=== PATIENT | male | born 1960 | race African-American/Black ===

== ENCOUNTER 2017-04-26 21:44 | Emergency (ER) | payer SELFPAY ==
[2017-04-26 21:55] VITALS: TEMP 97.7; BMI 31.9
--- NOTE | 2017-04-26 21:56 | PDOC ---
Rapid Medical Evaluation Time Seen by Provider: 04/26/17 21:47 Medical Evaluation: 04/26/17 21:51 I have performed a brief in-person person evaluation of the patient. The patient presents with a chief complaint of numbness to right side of his face since yesterday, states symptoms started as foreign body sensation in right eye now with right side of face feeling numb. Also reports a little tension in his head Pertinent physical exam findings: NAD unilateral smile, drooping of right side of face unlabored breathing heart sis2 neuro: drooping to right side of face, unable to keep right eye closed I have ordered the following: ekg, labs saline lock The patient will proceed to the ED for further evaluation.
--- NOTE | 2017-04-26 22:33 | PDOC ---
History of Present Illness - General Chief Complaint: CVA/TIA Stated Complaint: RT SIDE NUMBESS Time Seen by Provider: 04/26/17 21:47 History Source: Patient - History of Present Illness Initial Comments: 04/26/17 23:11 26-year-old male with history of right lip numbness and right sided facial droop for greater than 24 hours with worsening facial droop. Patient unable to close right eye tearing. Patient reports slight headache. Patient reports that he has been waking up with headaches for the past several months. Patient has not seen his primary doctor for 2-3 years. Patient is not on any daily meds and denies past medical history. 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 Past History - Past Medical History Allergies/Adverse Reactions: Allergies Allergy/AdvReac Type Severity Reaction Status Date / Time No Known Allergies Allergy Verified 04/26/17 21:51 Home Medications: Ambulatory Orders Acyclovir [Zovirax -] 400 mg PO 5XD #50 tablet 04/27/17 Amlodipine Besylate [Norvasc -] 5 mg PO DAILY #30 tablet 04/27/17 Dextran 70/Hypromellose [Artificial Tears Eye Drops] 1 ml OP Q4HWA #1 bottle 08/09 predniSONE [Deltasone -] 60 mg PO DAILY #15 tablet 04/27/17 COPD: No Other medical history: Pt denies - Suicide/Smoking/Psychosocial Hx Smoking History: Never smoked Have you smoked in the past 12 months: No Number of Cigarettes Smoked Daily: 3 Information on smoking cessation initiated: No Hx Alcohol Use: No Drug/Substance Use Hx: No Substance Use Type: None Review of Systems - Review of Systems Able to Perform ROS?: Yes Is the patient limited Cam[place]onian proficient: No Constitutional: No: Symptoms Reported, See HPI, Chills, Diaphoresis, Fever, Loss of Appetite, Malaise, Night Sweats, Weakness, Weight Stable, Unintentional Wgt. Loss, Unexplained wgt Loss, Other Neurological: Yes: Numbness (right sided facial droop), Paresthesia. No: Symptoms reported, See HPI, Headache, Pre-Existing Deficit, Seizure, Tingling, Tremors, Weakness, Unsteady Gait, Ataxia, Dizziness, Other *Physical Exam - Vital Signs Last Vital Signs Temp Pulse Resp BP Pulse Ox 97.7 F 85 20 235/151 97 04/26/17 21:53 04/26/17 21:53 04/26/17 21:53 04/26/17 21:53 04/26/17 21:53 - Physical Exam General Appearance: Yes: Appropriately Dressed Respiratory/Chest: positive: Lungs Clear, Normal Breath Sounds Cardiovascular: positive: Regular Rhythm, Regular Rate Gastrointestinal/Abdominal: positive: Normal Bowel Sounds, Soft Neurologic: positive: Fully Oriented, Alert, Normal Mood/Affect, Motor Strength 5/5, Abnormal Cranial NS, Finger to Nose (intact) NIH Stroke Scale - Last Known Well Date/Time & Onset Date Last Known Well: 04/25/17 Time Last Known Well: 20:00 - Initial Evaluation Level of consciousness: Alert Ask patient the month and their age: Answers both correctly Ask patient to open & close eyes; make fist and let go: Obeys both correctly Best gaze (horizontal eye movement): Normal Visual field testing: No visual field loss Facial paresis (Show teeth/raise eyebrows/close eyes tight): Partial paralysis ( total or near paralysis of lower face) Motor Function: Left Arm: Normal Motor Function: Right Arm: Normal (extends arm 90 (or 45) degrees for 10 seconds without drift Motor Function: Left Leg: Normal (extends leg 30 degrees for 5 seconds without drift) Motor Function: Right Leg: Normal (extends leg 30 degrees for 5 seconds without drift) Limb Ataxia: No ataxia Sensory(Use pinprick test arms,legs,trunk,face/side to side): Normal Best language (Describe picture, name items, read sentences): No Aphasia Dysarthria (read several words): Normal articulation Extinction and Inattention: No abnormality - Total Score NIH Stroke Scale Score: 2 TIA Risk Factors - ABCD Score Age: Age < 60 Blood Pressure: SBP =/> 140 Clinical Features of TIA: Uni wk w/wo speech impair Duration: TIA duration = or > 60min Diabetes: No Total ABCD2 Score (0-7):: 5 Heart Score/ECG Review - ECG Intrepretation Rhythm: Regular Rhythm Comment:: 04/26/17 23:14 NSR; 76 BPM Critical Care Time/MDM Note - Medical Decision Making Note: BElls Palsy; hypertensive urgency P; cbc cmp cardiac enzymes Chest xray CT head 04/26/17 23:41 ct HEAD . NEGATIVE. case reviewed with Dr. Treviño. Plan ti d/c home if b/p is controlled. Discharge Disposition - Diagnosis Facial paralysis/[place] palsy Hypertension Qualifiers: Hypertension type: essential hypertension Qualified Code(s): I10 - Essential ( primary) hypertension - Discharge Dispostion Disposition: HOME Last Admission D/C Date: 11/10/85 - Prescriptions Prescriptions: Acyclovir [Zovirax -] 400 mg PO 5XD #50 tablet Amlodipine Besylate [Norvasc -] 5 mg PO DAILY #30 tablet Dextran 70/Hypromellose [Artificial Tears Eye Drops] 1 ml OP Q4HWA #1 bottle predniSONE [Deltasone -] 60 mg PO DAILY #15 tablet - Referrals - Patient Instructions Printed Discharge Instructions: Lopez's Palsy, High Blood Pressure Additional Instructions: start a low sodium diet. follow up with your doctor as soon as possible. take acyclovir and prednisone as prescribed. return to the ER if symptoms worsen. - Post Discharge Activity Work/School Note: Back to Work
[2017-04-26 22:45] LABS: BASO % 1.4 % (0-2.0); EOS % 3.7 % (0-4.5); HEMOGLOBIN 13.2 GM/dL (11.7-16.9); LYMPH % 30.1 % (8-40); MCH 28.8 pg (25.7-33.7); MEAN CELL VOLUME 84.7 fl (80-96); MEAN PLT VOLUME 8.6 fl (7.5-11.1); MONO % 11.4 % (3.8-10.2); NEUT % 53.4 % (42.8-82.8); PLATELET COUNT 168 K/MM3 (134-434); RDW 13.7 % (11.9-15.9); WHITE BLOOD COUNT 7.8 K/mm3 (4.0-10.0)
[2017-04-26 23:22] LABS: ALBUMIN 3.4 g/dl (3.4-5.0); ANION GAP 11 (8-16); BILIRUBIN,TOTAL 0.3 mg/dL (0.2-1.0); BLOOD UREA NITROGEN 17 mg/dL (7-18); CALCIUM 8.6 mg/dL (8.5-10.1); CHLORIDE 106 mmol/L (98-107); CO2 26 mmol/L (21-32); CREATININE 1.4 mg/dL (0.7-1.3); GLUCOSE,RANDOM 87 mg/dL (74-106); POTASSIUM 3.4 mmol/L (3.5-5.1); SGOT/AST 14 U/L (15-37); SGPT/ALT 24 U/L (12-78); SODIUM 143 mmol/L (136-145); TOT PROT 7.3 g/dl (6.4-8.2)
[2017-04-26 23:24] LABS: ALK PHOS 51 U/L (45-117)
[2017-04-26] MEDS ORDERED: amLODIPine BESYLATE 5 MG TABLET (FP) PO ONE (23:39)
[2017-04-26] MEDS ORDERED: amLODIPine BESYLATE 5 MG TABLET (FP) ONE (23:53)
[2017-04-26 23:58] LABS: INR 1.07 (0.82-1.09); PROTHROMBIN TIME (PATIENT) 12.1 SEC (9.98-11.88)
[2017-04-27] LABS: ACTIVATED PTT 34.9 SECONDS (26.9-34.4)
[2017-04-27] MEDS ORDERED: cloNIDine HCL 0.1 MG TABLET PO ONE (00:17)
[2017-04-27] MEDS ORDERED: cloNIDine HCL 0.1 MG TABLET ONE (00:45)
[2017-04-27] MEDS ORDERED: ACYCLOVIR 400 MG TABLET PO ONE (01:02)
[2017-04-27] MEDS ORDERED: predniSONE 20 MG TABLET (UD) PO ONE (01:02)
[2017-04-27] MEDS ORDERED: ACYCLOVIR 200 MG CAPSULE ONE (01:21)
[2017-04-27] MEDS ORDERED: predniSONE 20 MG TABLET (UD) ONE (01:21)
[2017-04-27 01:38] VITALS: BP 182/96; PULSE 66
--- NOTE | 2017-04-27 14:17 | EKG ---
Test Reason : Blood Pressure : / mmHG Vent. Rate : 076 BPM Atrial Rate : 076 BPM P-R Int : 142 ms QRS Dur : 098 ms QT Int : 350 ms P-R-T Axes : 051 035 047 degrees QTc Int : 393 ms NORMAL SINUS RHYTHM CANNOT RULE OUT INFERIOR INFARCT , AGE UNDETERMINED ABNORMAL ECG WHEN COMPARED WITH ECG OF 04-JUN-1998 20:30, MINIMAL CRITERIA FOR INFERIOR INFARCT ARE NOW PRESENT NONSPECIFIC T WAVE ABNORMALITY, WORSE IN INFERIOR LEADS NONSPECIFIC T WAVE ABNORMALITY NOW EVIDENT IN LATERAL LEADS Confirmed by MD Maxine, Yandel ([id number]) on 04/27/2017 2:16:42 PM Referred By: Confirmed By:Yandel Goodman MD
== END 2017-04-27 02:15 | disposition home or self-care (01) ==
LOC: JER 21:44
DX: G51.0 Bell's palsy (principal); I10 Essential (primary) hypertension
CPT/HCPCS: 36415; 70450-TC; 71046-TC-FY; 80053; 82550; 82553; 84484; 85025; 85610; 85730; 86618; 93005; 93010; 99282-25; J0735